=== PATIENT | female | born 1935 | race Caucasian/White ===

== ENCOUNTER 2018-11-25 16:15 | Emergency (ER) | payer MEDICARE, OTHER ==
[2018-11-25 16:30] VITALS: RESP 18; O2SAT 92
[2018-11-25] MEDS ORDERED: CEFTRIAXONE 1 GM PDS 1 GM in SODIUM CHLORIDE 0.9% 50 ML 50 ML IV ONE (16:30)
[2018-11-25 16:37] VITALS: BP 207/78; PULSE 85
[2018-11-25] MEDS ORDERED: ACETAMINOPHEN 500 MG 500 MG TAB PO ONE (16:51)
[2018-11-25] MEDS ORDERED: SODIUM CHLORIDE 0.9% 500 ML 500 ML IV ONE (16:51)
[2018-11-25] MEDS ORDERED: SODIUM CHLORIDE 0.9% 1000ML 1,000 ML IV SCH (17:00)
[2018-11-25 17:34] LABS: BILIRUBIN,TOTAL 0.8 mg/dl (0.2-1.0); CALCIUM 8.7 mg/dl (8.5-10.1); CARBON DIOXIDE 28.5 mEq/L (21-32); CREATININE 1.45 mg/dl (0.60-1.00); MAGNESIUM 1.9 mg/dl (1.8-2.4); TOTAL PROTEIN 7.8 gm/dl (6.4-8.2); TROP I 0.065 ng/ml (0.000-0.056)
[2018-11-25 17:51] LABS: HEMATOCRIT 38 % (35-47); HEMOGLOBIN 12.2 gm/dl (12.0-15.5); MEAN CORPUSCULAR HEMOGLOBIN 30.2 pg (27.0-32.0); MEAN CORPUSCULAR HGB CONC 32.1 gm/dl (32.0-36.0); MEAN CORPUSCULAR VOLUME 94 fL (81-99)
[2018-11-25 17:52] LABS: LACTIC ACID 1.1 mMol/L (0.0-2.0)
[2018-11-25 17:58] LABS: CRP INFLAMMATORY 25.67 mg/dl (0.00-0.33)
[2018-11-25 18:01] LABS: APPEARANCE,URINE Clear; BILIRUBIN,URINE NEGATIVE (NEGATIVE); COLOR,URINE Yellow; GLUCOSE, URINE (UA) NEGATIVE (NEGATIVE); KETONES,URINE NEGATIVE (NEGATIVE); LEUKOCYTE ESTERASE ,URINE NEGATIVE (NEGATIVE); NITRATE,URINE NEGATIVE (NEGATIVE); OCCULT BLOOD,URINE 1+ (NEG-TRACE); UROBILINOGEN,URINE 0.2 (0.2-1.0 EU)
[2018-11-25] MEDS ORDERED: ACETAMINOPHEN 500 MG 500 MG TAB ONE (18:04)
[2018-11-25 18:11] VITALS: TEMP 98.2
[2018-11-25 18:12] LABS: EPITHELIAL CELLS NEGATIVE (SQUAMOUS); RBC,URINE 0-1 (0-3AV/HPF); WBC,URINE 0-2 (0-5AV/HPF)
[2018-11-25 18:13] LABS: BACTERIA NEGATIVE (< 1+); CRYSTALS NEGATIVE (0-3 AVE/HPF)
[2018-11-25 18:18] LABS: BAND NEUTROPHILS % (MANUAL) 3 %; BASOPHILS % (MANUAL) 0 % (0-3); EOSINOPHILS % (MANUAL) 0 % (0-9); LYMPHOCYTES % (MANUAL) 0 % (10-50); MONOCYTES % (MANUAL) 4 % (0-12); NEUTROPHILS % (MANUAL) 93 % (37-80)
[2018-11-25 18:19] LABS: NORMAL RBCS PRESENT
[2018-11-25] MEDS ORDERED: CEFTRIAXONE 1 GM PDS IV ONE (19:13)
[2018-11-25] MEDS ORDERED: CEFTRIAXONE 1 GM PDS ONE (19:14)
== END 2018-11-25 19:46 | disposition home or self-care (01) | DRG 392 ==
LOC: ED 16:15
DX: A09 Infectious gastroenteritis and colitis, unspecified (principal); D12.0 Benign neoplasm of cecum; K76.9 Liver disease, unspecified; R42 Dizziness and giddiness; E11.9 Type 2 diabetes mellitus without complications
CPT/HCPCS: 36415; 71046; 74176; 80053; 81001; 83605; 83735; 84484; 85007; 85027; 86140; 87040; 93005; 96365; 99285; J0696